=== PATIENT | female | born 1995 | race Caucasian/White ===

== ENCOUNTER → 2023-06-04 | Outpatient (CLI) | payer BC ==
[2023-06-04 18:11] LABS: HEMOGLOBIN 11.9 g/dl (12.0-15.5); MEAN CORPUSCULAR HEMOGLOBIN 31.1 pg (27.0-33.0); MEAN CORPUSCULAR VOLUME 91.4 fl (80.0-96.0); PLATELET COUNT, AUTOMATED 230 10^3/uL (150-450); RED BLOOD COUNT 3.83 10^6/uL (4.00-5.40); WHITE BLOOD COUNT 7.3 10^3/uL (4.0-10.0)
[2023-06-04 19:05] LABS: HIV 1&2 SCREEN NEGATIVE (NEGATIVE)
[2023-06-04 19:14] LABS: HEPATITIS C VIRUS ABY INDEX < 0.02 INDEX (<0.8)
[2023-06-04 19:41] LABS: CHLAMYDIA DNA AMPLIFICATION NEGATIVE (NEGATIVE); GC DNA AMPLIFICATION NEGATIVE (NEGATIVE)
== END ==
LOC: M PLALAB 15:07
PROVIDERS: ATTEND Advanced Practice Midwife
DX: Z34.91 Encounter for supervision of normal pregnancy, unspecified, first trimester (principal)

== ENCOUNTER → 2023-08-19 | Outpatient (CLI) | payer BC | LOC: M WHC 13:25 | PROVIDERS: ATTEND Obstetrics & Gynecology | DX: Z36.2 Encounter for other antenatal screening follow-up (principal); Z3A.23 23 weeks gestation of pregnancy ==

== ENCOUNTER → 2023-10-02 | Outpatient (CLI) | payer BC, MEDICARE, OTHER ==
[2023-10-02 14:24] LABS: HEMOGLOBIN 11.3 g/dl (12.0-15.5); MEAN CORPUSCULAR HEMOGLOBIN 30.7 pg (27.0-33.0); MEAN CORPUSCULAR HGB CONC 34.2 g/dl (32.0-36.5); MEAN CORPUSCULAR VOLUME 89.7 fl (80.0-96.0); PLATELET COUNT, AUTOMATED 205 10^3/uL (150-450); RED BLOOD COUNT 3.68 10^6/uL (4.00-5.40); WHITE BLOOD COUNT 10.2 10^3/uL (4.0-10.0)
[2023-10-02 14:51] LABS: GC DNA AMPLIFICATION NEGATIVE (NEGATIVE)
== END ==
LOC: M PLALAB 10:39
PROVIDERS: ATTEND Obstetrics & Gynecology
DX: Z34.92 Encounter for supervision of normal pregnancy, unspecified, second trimester (principal)

== ENCOUNTER → 2023-10-02 | Outpatient (CLI) | payer BC | LOC: M WHC 09:18 | PROVIDERS: ATTEND Obstetrics & Gynecology | DX: O44.40 Low lying placenta NOS or without hemorrhage, unspecified trimester (principal); Z3A.28 28 weeks gestation of pregnancy ==

== ENCOUNTER 2023-11-20 08:30 | Outpatient (CLI) | payer BC, OTHER, MEDICARE ==
[~2023-11-20] VITALS: Ht 157.5 cm; Wt 91.2 kg
[2023-11-20] MEDS ORDERED: PREN200C PO (08:55)
[2023-11-20] MEDS ORDERED: HOME MED LIST COMPLETE! XX SCH (08:55)
[2023-11-20 08:59] VITALS: BP 118/78
== END 2023-11-20 09:45 | disposition home or self-care (01) ==
LOC: M LDO 08:30
PROVIDERS: ATTEND Advanced Practice Midwife
DX: O26.853 Spotting complicating pregnancy, third trimester (principal); Z3A.35 35 weeks gestation of pregnancy
CPT/HCPCS: 59025; 87081; G0463

== ENCOUNTER 2023-12-15 11:50 | Inpatient (IN) | payer BC, OTHER, MEDICARE ==
[2023-12-15] VITALS (8 sets, daily range): BP systolic 110–135; BP diastolic 66–78
[~2023-12-15] VITALS: Ht 157.5 cm; Wt 93.2 kg
[~2023-12-15 11:50] MED LIST: PREN200C PO
[2023-12-15] MEDS ORDERED: PRENTAB9 PO (12:05)
[2023-12-15] MEDS ORDERED: HOME MED LIST COMPLETE! XX SCH (12:10)
[2023-12-15] MEDS ORDERED: METHYLERGONOVINE MALEATE 0.2MG/ML 1ML VIAL IM PRN (12:25)
[2023-12-15] MEDS ORDERED: CARBOPROST TROMETHAMINE 250 MCG/ML AMP IM PRN (12:25)
[2023-12-15] MEDS ORDERED: OXYTOCIN DRIP 30 UNITS in IV 1 EA IV PRN (12:25)
[2023-12-15] MEDS ORDERED: TRANEXAMIC ACID INJection 1,000 MG in NS 100 ML IV PRN (12:25)
[2023-12-15] MEDS ORDERED: LIDOCAINE 1% MDV 20ML VIAL INFIL PRN (12:25)
[2023-12-15] MEDS ORDERED: miSOPROStol 50MCG 1/2 TABLET XX SCH (12:40)
[2023-12-15] MEDS: LR 1,000 ML IV SCH (12:47)
[2023-12-15 12:51] LABS: HEMOGLOBIN 11.1 g/dl (12.0-15.5); MEAN CORPUSCULAR HGB CONC 34.7 g/dl (32.0-36.5); MEAN CORPUSCULAR VOLUME 83.6 fl (80.0-96.0); PLATELET COUNT, AUTOMATED 183 10^3/uL (150-450); RED BLOOD COUNT 3.83 10^6/uL (4.00-5.40); WHITE BLOOD COUNT 8.8 10^3/uL (4.0-10.0)
[2023-12-15] MEDS: miSOPROStol 50MCG 1/2 TABLET PO SCH (13:02)
[2023-12-15 13:51] LABS: HEPATITIS C VIRUS ABY INDEX < 0.02 INDEX (<0.8)
[2023-12-15] MEDS: BUTORPHANOL 2 MG/ML 1ML VIAL IV ONE (22:04)
[2023-12-15] MEDS: OXYTOCIN DRIP 30 UNITS in IV 1 EA IV SCH (22:04)
[2023-12-15] MEDS: PROMETHAZINE 25MG/ML 1ML VIAL IV ONE (22:04)
[2023-12-15] MEDS: CALCIUM CARBONATE 500 MG CHEW U/D PO ONE (22:15)
[2023-12-16] VITALS (28 sets, daily range): BP systolic 112–151; BP diastolic 58–92; O2SAT 95–98
[2023-12-16] MEDS ORDERED: ONDANSETRON 4MG 2ML VIAL IV PRN (01:20)
[2023-12-16] MEDS ORDERED: LR 500 ML IV PRN (01:20)
[2023-12-16] MEDS ORDERED: ePHEDrine SULFATE 25 MG/5 ML(5MG/ML) SYRINGE IVP PRN (01:20)
[2023-12-16] MEDS ORDERED: NALOXONE INJ 0.4MG/1ML VIAL IV PRN (01:20)
[2023-12-16] MEDS ORDERED: diphenhydrAMINE 50MG/ML VIAL IV PRN (01:20)
[2023-12-16] MEDS ORDERED: EPIDURAL/PCA KEYS XX PRN (01:20)
[2023-12-16] MEDS: LACTATED RINGER'S 1000 ML IV STA (01:27)
[2023-12-16] MEDS: FENTANYL/ROPIVACAINE/NACL BAG 100 ML EPIDURAL SCH (01:28)
[2023-12-16] MEDS ORDERED: DOCUSATE SODIUM 100MG CAPSULE PO PRN (08:10)
[2023-12-16] MEDS ORDERED: METHYLERGONOVINE MALEATE 0.2 MG TAB PO PRN (08:10)
[2023-12-16] MEDS ORDERED: RHO(D) IMMUNE GLOBULIN/MALTOSE 500MCG(2500IU)/2.2ML VIAL (WINRHO) IM SCH (08:10)
[2023-12-16] MEDS ORDERED: LR 1,000 ML IV SCH (08:10)
[2023-12-16] MEDS: ACETAMINOPHEN 500 MG TAB PO PRN (08:24)
[2023-12-16] MEDS: OXYTOCIN DRIP 30 UNITS in IV 1 EA IV SCH (08:24)
[2023-12-16] MEDS: PRENATAL VITAMINS CHEWABLE TABLET PO SCH (09:00)
[2023-12-16] MEDS: DIBUCAINE 1% OINTMENT 30GM TOP PRN (11:28)
[2023-12-16] MEDS: IBUPROFEN 800 MG TAB PO PRN (13:10)
[2023-12-18] MEDS ORDERED: MEASLES,MUMPS,RUBELLA VACCINE INJ (MMR-II) SC.IMMUN ONE (09:00)
== END 2023-12-17 14:55 | disposition home or self-care (01) | DRG 560 ==
LOC: M LDI 11:50 → M OBS 12-16 09:40
PROVIDERS: ADMIT Obstetrics & Gynecology; ATTEND Obstetrics & Gynecology
PROC: 3E0P7GC Introduction of Other Therapeutic Substance into Female Reproductive, Via Natural or Artificial Opening (ICD-10-PCS; 2023-12-15)
PROC: 10E0XZZ Delivery of Products of Conception, External Approach (ICD-10-PCS; principal; 2023-12-16)
DX: O80 Encounter for full-term uncomplicated delivery (principal); Z37.0 Single live birth; Z3A.39 39 weeks gestation of pregnancy